=== PATIENT | male | born 1965 | race Caucasian/White ===

== ENCOUNTER 2021-02-21 06:43 | Day surgery (SDC) | payer MEDICARE ==
[2021-02-20 10:09] VITALS: BMI 55.2
[2021-02-21] MEDS ORDERED: PROPOFOL 200 MG/20 ML VIAL ONE (09:20)
== END 2021-02-21 11:15 | disposition home or self-care (01) ==
LOC: SDC 06:43
PROVIDERS: ATTEND Internal Medicine Gastroenterology
PROC: 0DBK8ZX Excision of Ascending Colon, Via Natural or Artificial Opening Endoscopic, Diagnostic (ICD-10-PCS; principal; 2021-02-21)
PROC: 0DBL8ZZ Excision of Transverse Colon, Via Natural or Artificial Opening Endoscopic (ICD-10-PCS; 2021-02-21)
PROC: 3E0H8KZ Introduction of Other Diagnostic Substance into Lower GI, Via Natural or Artificial Opening Endoscopic (ICD-10-PCS; 2021-02-21)
DX: Z12.11 Encounter for screening for malignant neoplasm of colon (principal); D12.2 Benign neoplasm of ascending colon; D12.3 Benign neoplasm of transverse colon; E11.9 Type 2 diabetes mellitus without complications; I10 Essential (primary) hypertension; E78.5 Hyperlipidemia, unspecified; E66.9 Obesity, unspecified; Z68.43 Body mass index [BMI] 50.0-59.9, adult; Z86.010 Personal history of colon polyps; Z79.4 Long term (current) use of insulin; Z79.82 Long term (current) use of aspirin; Z79.899 Other long term (current) drug therapy; Z88.8 Allergy status to other drugs, medicaments and biological substances
CPT/HCPCS: 36416; 88305; J2704

== ENCOUNTER 2024-02-06 07:32 | Outpatient (CLI) | payer MEDICARE, MEDICAID | END 2024-02-06 07:33 | disposition home or self-care (01) | LOC: NM 07:32 | PROVIDERS: ATTEND Family Medicine | DX: E11.621 Type 2 diabetes mellitus with foot ulcer (principal); L97.509 Non-pressure chronic ulcer of other part of unspecified foot with unspecified severity | CPT/HCPCS: 78315; A9503 ==

== ENCOUNTER 2024-02-07 18:56 | Inpatient (IN) | payer MEDICARE, MEDICAID ==
[2024-02-07] MEDS ORDERED: HYDROcodone/Acetaminophen 5/325 mg Tablet PO PRN (20:09)
[2024-02-07] MEDS ORDERED: Acetaminophen 325 MG TAB PO PRN ×2 (20:12→20:21)
[2024-02-07] MEDS ORDERED: Dextrose 5% in Water 1,000 ML IV PRN (20:15)
[2024-02-07] MEDS ORDERED: Dextrose 50% Abboject 50 ML SYRINGE SLOW IVP PRN (20:15)
[2024-02-07] MEDS ORDERED: Glucagon 1 MG/ML KIT IM PRN (20:15)
[2024-02-07] MEDS ORDERED: Ondansetron PF 4 MG/2 ML Vial IVP PRN (20:21)
[2024-02-07] MEDS ORDERED: Acetaminophen 650 MG Suppository PR PRN (20:21)
[2024-02-07] MEDS ORDERED: Ondansetron ODT 4 MG TAB PO PRN (20:21)
[2024-02-07] MEDS: Senokot S 8.6-50 MG TAB PO SCH (20:47)
[2024-02-07] MEDS: Heparin 5,000 UNITS/ML VIAL SC SCH (20:47)
[2024-02-07] MEDS: Gabapentin 300 MG CAP PO SCH (20:48)
[2024-02-07] MEDS: traZODone HCl 50 MG TAB PO SCH (20:48)
[2024-02-07] MEDS: Loratadine 10 MG TAB PO SCH (20:48)
[2024-02-07] MEDS: Sertraline 100 MG TAB PO SCH (20:48)
[2024-02-07] MEDS: Famotidine/PF 20 mg/2ml Vial SLOW IVP SCH (20:49)
[2024-02-07] MEDS: Insulin Glargine 30 UNITS/0.3 ML VIAL SC SCH (20:49)
[2024-02-07] MEDS: Famotidine 20 MG TAB PO SCH (20:50)
[2024-02-07] MEDS ORDERED: Vancomycin 1 GM in Premix 1 BAG IVPB SCH (21:00)
[2024-02-07 21:06] LABS: Anion Gap 8 mmol/L (10-20); BUN (Urea Nitrogen) 65 mg/dL (8.4-25.7); Calc. Creatinine Clearance 0 mL/min (70-130); Calcium 8.6 mg/dL (7.8-10.44); Carbon Dioxide 24 mmol/L (22-29); Chloride 103 mmol/L (98-107); Estimated GFR 27; Glucose 292 mg/dL (70-105); Potassium 4.5 mmol/L (3.5-5.1); Sodium 130 mmol/L (136-145)
[2024-02-07 21:31] VITALS: BMI 47.1
[2024-02-08] MEDS: HYDROcodone/Acetaminophen 5/325 mg Tablet PO PRN (00:45)
[2024-02-08] MEDS: Insulin Regular, Human 100 UNIT/ML 10 ML VIAL SC PRN ×2 (00:48→13:07)
[2024-02-08] MEDS ORDERED: Cefepime 2 GM in Sodium Chloride 0.9% 100 ML IVPB SCH (04:00)
[2024-02-08 05:30] LABS: Vancomycin, Random 10.8 ug/mL (See Comment)
[2024-02-08 05:45] LABS: ALT (SGPT) 22 U/L (8-55); AST (SGOT) 17 U/L (5-34); Albumin 2.7 g/dL (3.5-5.0); Alkaline Phosphatase 62 U/L (40-110); Anion Gap 11 mmol/L (10-20); BUN (Urea Nitrogen) 64 mg/dL (8.4-25.7); Bilirubin, Total 0.3 mg/dL (0.2-1.2); Calc. Creatinine Clearance 79 mL/min (70-130); Calcium 8.6 mg/dL (7.8-10.44); Carbon Dioxide 26 mmol/L (22-29); Chloride 106 mmol/L (98-107); Estimated GFR 30; Globulin 3.6 g/dL (2.4-3.5); Glucose 157 mg/dL (70-105); Potassium 4.5 mmol/L (3.5-5.1); Protein, Total 6.3 g/dL (6.0-8.3); Sodium 138 mmol/L (136-145)
[2024-02-08 05:53] LABS: #Basophils 0.04 10x3/uL (0.0-0.2); %Basophils 0.5 % (0.0-1.0); %Eosinophils 4.3 % (0.0-10.0); %Lymphocytes 29.4 % (21.0-51.0); %Monocytes 7.7 % (0.0-10.0); %Neutrophils 57.9 % (42.0-75.0); Hematocrit 31.6 % (42.0-52.0); Hemoglobin 9.8 g/dL (14.0-18.0); Mean Corpuscular Hemoglobin 27.4 pg (27.0-31.0); Mean Corpuscular Volume 88.3 fL (78.0-98.0); Mean Platelet Volume 10.5 fL (7.4-10.4); Platelet Count 190 10x3/uL (130-400); RBC Distribution Width 14.5 % (11.5-14.5); Red Blood Cell (RBC) Count 3.58 mill/uL (4.70-6.10)
[2024-02-08] MEDS ORDERED: hydrALAZINE 20 MG/ML VIAL SLOW IVP PRN (08:46)
[2024-02-08] MEDS: Furosemide 40 MG TAB PO SCH (08:55)
[2024-02-08] MEDS: Aspirin 81 mg Enteric Coated Tablet PO SCH (08:56)
[2024-02-08] MEDS: Amlodipine 10 MG TAB PO SCH (09:04)
[2024-02-08] MEDS: Fluticasone Propionate Nasal Spray 16 gm Bottle NASAL SCH (09:05)
[2024-02-08 13:09] VITALS: BMI 47.1
[2024-02-08] MEDS: Loratadine 10 MG TAB PO SCH (20:32)
[2024-02-08] MEDS: Meropenem 500 MG in Sodium Chloride 0.9% 100 ML IVPB SCH (20:41)
[2024-02-08] MEDS: Insulin Glargine 30 UNITS/0.3 ML VIAL SC SCH (20:43)
[2024-02-09 05:45] LABS: #Basophils 0.04 10x3/uL (0.0-0.2); %Basophils 0.6 % (0.0-1.0); %Eosinophils 6.1 % (0.0-10.0); %Lymphocytes 37.4 % (21.0-51.0); %Monocytes 6.5 % (0.0-10.0); Hematocrit 32.4 % (42.0-52.0); Mean Corpuscular HGB CONC 30.9 g/dL (32.0-36.0); Mean Corpuscular Hemoglobin 26.6 pg (27.0-31.0); Mean Corpuscular Volume 86.2 fL (78.0-98.0); Mean Platelet Volume 10.7 fL (7.4-10.4); Platelet Count 189 10x3/uL (130-400); RBC Distribution Width 14.6 % (11.5-14.5); Red Blood Cell (RBC) Count 3.76 mill/uL (4.70-6.10)
[2024-02-09 06:18] LABS: Anion Gap 15 mmol/L (10-20); BUN (Urea Nitrogen) 62 mg/dL (8.4-25.7); Calc. Creatinine Clearance 87 mL/min (70-130); Calcium 8.8 mg/dL (7.8-10.44); Carbon Dioxide 23 mmol/L (22-29); Chloride 107 mmol/L (98-107); Estimated GFR 34; Glucose 89 mg/dL (70-105); Sodium 141 mmol/L (136-145)
[2024-02-09] MEDS: hydrALAZINE 10 MG TAB PO SCH (08:45)
[2024-02-09 09:00] LABS: CRP,High Sensitivity (Inhouse) 2.44 mg/dL (< or = 0.5)
[2024-02-09] MEDS ORDERED: hydrALAZINE 10 MG TAB PO SCH (09:00)
[2024-02-09] MEDS: tiZANidine HCl 4 MG TAB PO PRN (17:06)
[2024-02-09] MEDS ORDERED: Non-Formulary Item 1 EACH (Atorvastatin Calcium [Atorvastatin Calcium] 80 MG Tablet) PO SCH (21:00)
[2024-02-09] MEDS: Atorvastatin Calcium 40 MG TAB PO SCH (21:03)
[2024-02-09] MEDS: Sertraline 100 MG TAB PO SCH (21:06)
[2024-02-10 08:07] LABS: #Basophils 0.03 10x3/uL (0.0-0.2); %Basophils 0.4 % (0.0-1.0); %Eosinophils 5.5 % (0.0-10.0); %Lymphocytes 33.2 % (21.0-51.0); %Monocytes 6.2 % (0.0-10.0); %Neutrophils 54.4 % (42.0-75.0); Anion Gap 10 mmol/L (10-20); BUN (Urea Nitrogen) 60 mg/dL (8.4-25.7); Calc. Creatinine Clearance 93 mL/min (70-130); Calcium 8.6 mg/dL (7.8-10.44); Carbon Dioxide 26 mmol/L (22-29); Chloride 106 mmol/L (98-107); Estimated GFR 37; Glucose 251 mg/dL (70-105); Hematocrit 32.7 % (42.0-52.0); Hemoglobin 10.1 g/dL (14.0-18.0); Mean Corpuscular HGB CONC 30.9 g/dL (32.0-36.0); Mean Corpuscular Hemoglobin 27.3 pg (27.0-31.0); Mean Corpuscular Volume 88.4 fL (78.0-98.0); Mean Platelet Volume 10.5 fL (7.4-10.4); Platelet Count 184 10x3/uL (130-400); Potassium 4.3 mmol/L (3.5-5.1); RBC Distribution Width 14.4 % (11.5-14.5); Sodium 138 mmol/L (136-145)
[2024-02-10] MEDS: Meropenem 1 GM in Sodium Chloride 0.9% 100 ML IVPB SCH (14:03)
[2024-02-11 05:54] LABS: #Basophils 0.03 10x3/uL (0.0-0.2); %Basophils 0.4 % (0.0-1.0); %Eosinophils 5.3 % (0.0-10.0); %Neutrophils 49.9 % (42.0-75.0); Hematocrit 32.1 % (42.0-52.0); Hemoglobin 10.1 g/dL (14.0-18.0); Mean Corpuscular HGB CONC 31.5 g/dL (32.0-36.0); Mean Corpuscular Hemoglobin 27.1 pg (27.0-31.0); Mean Corpuscular Volume 86.1 fL (78.0-98.0); Mean Platelet Volume 10.4 fL (7.4-10.4); Platelet Count 179 10x3/uL (130-400); RBC Distribution Width 14.6 % (11.5-14.5); Red Blood Cell (RBC) Count 3.73 mill/uL (4.70-6.10)
[2024-02-11 06:53] LABS: Anion Gap 16 mmol/L (10-20); BUN (Urea Nitrogen) 58 mg/dL (8.4-25.7); Calc. Creatinine Clearance 92 mL/min (70-130); Calcium 8.7 mg/dL (7.8-10.44); Carbon Dioxide 22 mmol/L (22-29); Chloride 104 mmol/L (98-107); Estimated GFR 36; Glucose 261 mg/dL (70-105); Potassium 4.7 mmol/L (3.5-5.1); Sodium 137 mmol/L (136-145)
[2024-02-11 06:54] LABS: CRP,High Sensitivity (Inhouse) 1.66 mg/dL (< or = 0.5)
[2024-02-12] MEDS: Insulin Glargine 30 UNITS/0.3 ML VIAL SC SCH (21:47)
[2024-02-13 06:20] LABS: Anion Gap 10 mmol/L (10-20); BUN (Urea Nitrogen) 53 mg/dL (8.4-25.7); Calc. Creatinine Clearance 91 mL/min (70-130); Calcium 9.2 mg/dL (7.8-10.44); Carbon Dioxide 27 mmol/L (22-29); Chloride 104 mmol/L (98-107); Estimated GFR 36; Glucose 321 mg/dL (70-105); Potassium 4.6 mmol/L (3.5-5.1); Sodium 136 mmol/L (136-145)
[2024-02-13] MEDS: Amlodipine 10 MG TAB PO SCH (09:57)
[2024-02-13] MEDS: Gabapentin 300 MG CAP PO SCH (09:57)
[2024-02-13] MEDS: Senokot S 8.6-50 MG TAB PO SCH (09:57)
[2024-02-13] MEDS ORDERED: Sodium Bicarbonate 2.5 MEQ/5 ML SDV ONE (11:38)
[2024-02-13] MEDS ORDERED: Lidocaine 1% PF 5 ML VIAL ONE (11:38)
[2024-02-13] MEDS: traZODone HCl 50 MG TAB PO SCH (21:00)
[2024-02-13] MEDS: Benzocaine/Menthol 1 LOZ LOZ PO PRN (21:02)
[2024-02-14 05:33] LABS: #Basophils 0.03 10x3/uL (0.0-0.2); %Basophils 0.3 % (0.0-1.0); %Eosinophils 3.7 % (0.0-10.0); %Lymphocytes 34.6 % (21.0-51.0); %Monocytes 7.9 % (0.0-10.0); Hematocrit 34.8 % (42.0-52.0); Hemoglobin 10.9 g/dL (14.0-18.0); Mean Corpuscular HGB CONC 31.3 g/dL (32.0-36.0); Mean Corpuscular Hemoglobin 27.5 pg (27.0-31.0); Mean Corpuscular Volume 87.7 fL (78.0-98.0); Mean Platelet Volume 10.3 fL (7.4-10.4); Platelet Count 183 10x3/uL (130-400); RBC Distribution Width 14.3 % (11.5-14.5); Red Blood Cell (RBC) Count 3.97 mill/uL (4.70-6.10)
[2024-02-14 05:52] LABS: Anion Gap 14 mmol/L (10-20); BUN (Urea Nitrogen) 50 mg/dL (8.4-25.7); Calc. Creatinine Clearance 96 mL/min (70-130); Calcium 9.1 mg/dL (7.8-10.44); Carbon Dioxide 25 mmol/L (22-29); Chloride 102 mmol/L (98-107); Estimated GFR 38; Glucose 237 mg/dL (70-105); Potassium 4.6 mmol/L (3.5-5.1); Sodium 136 mmol/L (136-145)
[2024-02-14] MEDS ORDERED: Ceftaroline 600 MG in Sodium Chloride 0.9% 100 ML IVPB SCH (09:26)
[2024-02-15 03:59] LABS: #Basophils 0.03 10x3/uL (0.0-0.2); %Basophils 0.3 % (0.0-1.0); %Eosinophils 4.2 % (0.0-10.0); %Lymphocytes 29.7 % (21.0-51.0); %Monocytes 7.3 % (0.0-10.0); %Neutrophils 58.2 % (42.0-75.0); Hematocrit 35.2 % (42.0-52.0); Hemoglobin 11.2 g/dL (14.0-18.0); Mean Corpuscular HGB CONC 31.8 g/dL (32.0-36.0); Mean Corpuscular Hemoglobin 27.5 pg (27.0-31.0); Mean Corpuscular Volume 86.3 fL (78.0-98.0); Mean Platelet Volume 9.9 fL (7.4-10.4); Platelet Count 179 10x3/uL (130-400); RBC Distribution Width 14.2 % (11.5-14.5); Red Blood Cell (RBC) Count 4.08 mill/uL (4.70-6.10)
[2024-02-15 04:18] LABS: Anion Gap 15 mmol/L (10-20); BUN (Urea Nitrogen) 54 mg/dL (8.4-25.7); Calc. Creatinine Clearance 95 mL/min (70-130); Carbon Dioxide 20 mmol/L (22-29); Chloride 101 mmol/L (98-107); Potassium 4.4 mmol/L (3.5-5.1); Sodium 132 mmol/L (136-145)
[2024-02-15 04:19] LABS: Calcium 8.9 mg/dL (7.8-10.44); Estimated GFR 38; Glucose 278 mg/dL (70-105)
[2024-02-15] MEDS: Gabapentin 300 MG CAP PO SCH ×2 (09:28→14:12)
[2024-02-15] MEDS: HumaLOG 300 UNITS/3 ML VIAL SC SCH (12:28)
[2024-02-16 04:34] LABS: #Basophils Less than 0.03 10x3/uL (0.0-0.2); %Basophils 0.3 % (0.0-1.0); %Eosinophils 4.3 % (0.0-10.0); %Lymphocytes 36.2 % (21.0-51.0); %Monocytes 8.1 % (0.0-10.0); %Neutrophils 50.7 % (42.0-75.0); Hematocrit 34.4 % (42.0-52.0); Hemoglobin 10.9 g/dL (14.0-18.0); Mean Corpuscular HGB CONC 31.7 g/dL (32.0-36.0); Mean Corpuscular Hemoglobin 27.3 pg (27.0-31.0); Mean Corpuscular Volume 86.2 fL (78.0-98.0); Mean Platelet Volume 10.1 fL (7.4-10.4); Platelet Count 185 10x3/uL (130-400); RBC Distribution Width 14.1 % (11.5-14.5); Red Blood Cell (RBC) Count 3.99 mill/uL (4.70-6.10)
[2024-02-16 04:49] LABS: Anion Gap 15 mmol/L (10-20); BUN (Urea Nitrogen) 56 mg/dL (8.4-25.7); Calc. Creatinine Clearance 103 mL/min (70-130); Calcium 8.8 mg/dL (7.8-10.44); Carbon Dioxide 23 mmol/L (22-29); Chloride 104 mmol/L (98-107); Estimated GFR 42; Glucose 245 mg/dL (70-105); Potassium 4.4 mmol/L (3.5-5.1); Sodium 138 mmol/L (136-145)
[2024-02-16] MEDS: Bisacodyl 5 MG TAB PO SCH (11:38)
[2024-02-16] MEDS: Lactulose 20 GM (30 mL) UDCUP PO SCH (11:38)
[2024-02-17 11:45] VITALS: TEMP 98.6
[2024-02-17 14:30] VITALS: BP 134/64
== END 2024-02-17 15:24 | disposition swing bed (61) | DRG 638 ==
LOC: T4-B 20:03 → 2NO 02-14 18:37
PROVIDERS: ADMIT Internal Medicine; ATTEND Internal Medicine
PROC: 3E03329 Introduction of Other Anti-infective into Peripheral Vein, Percutaneous Approach (ICD-10-PCS; 2024-02-07)
PROC: 02HV33Z Insertion of Infusion Device into Superior Vena Cava, Percutaneous Approach (ICD-10-PCS; principal; 2024-02-13)
PROC: B5181ZA Fluoroscopy of Superior Vena Cava using Low Osmolar Contrast, Guidance (ICD-10-PCS; 2024-02-13)
PROC: B548ZZA Ultrasonography of Superior Vena Cava, Guidance (ICD-10-PCS; 2024-02-13)
DX: E11.69 Type 2 diabetes mellitus with other specified complication (principal); I13.0 Hypertensive heart and chronic kidney disease with heart failure and stage 1 through stage 4 chronic kidney disease, or unspecified chronic kidney disease; M86.272 Subacute osteomyelitis, left ankle and foot; Z68.42 Body mass index [BMI] 45.0-49.9, adult; I50.32 Chronic diastolic (congestive) heart failure; N17.9 Acute kidney failure, unspecified; E11.22 Type 2 diabetes mellitus with diabetic chronic kidney disease; E11.51 Type 2 diabetes mellitus with diabetic peripheral angiopathy without gangrene; E66.01 Morbid (severe) obesity due to excess calories; R00.1 Bradycardia, unspecified; E11.65 Type 2 diabetes mellitus with hyperglycemia; N18.30 Chronic kidney disease, stage 3 unspecified; B96.1 Klebsiella pneumoniae [K. pneumoniae] as the cause of diseases classified elsewhere; E11.40 Type 2 diabetes mellitus with diabetic neuropathy, unspecified; K59.00 Constipation, unspecified; I48.0 Paroxysmal atrial fibrillation; Z79.899 Other long term (current) drug therapy; Z79.82 Long term (current) use of aspirin; Z89.511 Acquired absence of right leg below knee; Z79.4 Long term (current) use of insulin; Z79.2 Long term (current) use of antibiotics; Z90.89 Acquired absence of other organs; Z90.49 Acquired absence of other specified parts of digestive tract; Z88.8 Allergy status to other drugs, medicaments and biological substances
CPT/HCPCS: 36415; 36416; 36569; 76937; 77001; 80048; 80053; 80202; 83735; 85025; 86141; 87070; 87077; 87186; 87205; 93005; 93010; 97139; C1751; J1644; J1815; J2185; J3490; S0028